=== PATIENT | male | born 1995 | race Two or more races ===

== ENCOUNTER 2022-01-22 13:15 | Emergency (ER) | payer BC ==
[~2022-01-22] VITALS: Ht 180.3 cm; Wt 79.4 kg
== END 2022-01-22 15:25 | disposition home or self-care (01) ==
LOC: ER 13:15
DX: J03.90 Acute tonsillitis, unspecified (principal)

== ENCOUNTER 2022-01-29 15:01 | Outpatient (CLI) | payer BC | END 2022-01-29 15:02 | disposition home or self-care (01) | LOC: RAD 15:01 | PROVIDERS: ATTEND Orthopaedic Surgery | DX: M25.561 Pain in right knee (principal) ==